=== PATIENT | female | born 1995 | race Caucasian/White ===

== ENCOUNTER 2018-08-06 12:51 | Emergency (ER) | payer OTHER ==
[2018-08-06] MEDS ORDERED: D5W-0.45 NACL + KCL 20 MEQ 1,000 ML IV (14:49)
[2018-08-06] MEDS: METOCLOPRAMIDE 10 MG TAB PO (15:21)
[2018-08-06 15:25] LABS: ADD MAN DIFF? NO
[2018-08-06 15:27] LABS: BASOPHILS % 0.2 % (0.0-2.0); HEMATOCRIT 41.8 % (37.0-47.0); HEMOGLOBIN 14.2 g/dl (12.0-16.0); LYMPHOCYTES # 1.5 10^3/ul (0.8-2.9); LYMPHOCYTES % 11.7 % (15.0-51.0); MEAN CORPUSCULAR VOLUME 88.4 fl (82.0-101.0); MEAN PLATELET VOLUME 10.2 fl (7.4-10.4); MONOCYTE # 0.9 10^3/ul (0.3-0.9); MONOCYTES % 7.1 % (0.0-11.0); NEUTROPHILS % 80.8 % (39.0-77.0); PLATELET COUNT 306 10^3/UL (140-415); RED BLOOD COUNT 4.73 10^6/ul (4.20-5.40); RED CELL DISTRIBUTION WIDTH 11.9 % (11.5-14.5)
[2018-08-06 15:27] LABS: WHITE BLOOD COUNT 12.4 10^3/ul (4.8-10.8)
[2018-08-06] MEDS: D5W-0.45 NACL + KCL 20 MEQ 1,000 ML IV (15:29)
[2018-08-06 15:44] LABS: ADD UMIC YES; UR ASCORBIC ACID NEGATIVE (NEGATIVE); UR BACTERIA MODERATE /HPF (NONE SEEN); UR BILIRUBIN (Dip) NEGATIVE (NEGATIVE); UR BLOOD (Dip) NEGATIVE (NEGATIVE); UR CLARITY CLOUDY (CLEAR); UR COLOR AMBER (YELLOW); UR GLUCOSE (Dip) 1+ mg/dL (NEGATIVE); UR KETONES (Dip) 2+ mg/dL (NEGATIVE); UR LEUKOCYTE ESTERASE (Dip) NEGATIVE Leu/ul (NEGATIVE); UR MUCUS MANY /HPF (NONE SEEN); UR NITRITE (Dip) NEGATIVE (NEGATIVE); UR RBC 8 /HPF (0-5); UR SPECIFIC GRAVITY (Dip) 1.033 (1.003-1.030); UR SQUAMOUS EPITHELIAL CELL MODERATE /HPF (FEW); UR TOTAL PROTEIN (Dip) 1+ mg/dl (NEGATIVE); UR UROBILINOGEN (Dip) 2+ mg/dL (NEGATIVE); UR WBC 12 /HPF (0-5)
[2018-08-06 15:48] LABS: ANION GAP 16 (5-13); BLOOD UREA NITROGEN 10 mg/dl (7-20); CALCIUM 9.7 mg/dl (8.4-10.2); CARBON DIOXIDE 24 mmol/L (21-31); CHLORIDE 100 mmol/L (97-110); CREATININE 0.54 mg/dl (0.44-1.00); Estimated GFR > 60 mL/min (>60); GLUCOSE 119 mg/dl (70-220); LIPASE 98 U/L (23-300); POTASSIUM 3.6 mmol/L (3.5-5.1); SODIUM 140 mmol/L (135-144)
[2018-08-06] MEDS: ONDANSETRON 4 MG INJ IV (17:18)
[2018-08-06] MEDS: CEFTRIAXONE 1 GM/50 ML (PMX) 50 ML IVPB (17:18)
[2018-08-06] MEDS: SOD CHLORIDE 0.9% 500 ML IV (17:34)
== END 2018-08-06 18:37 | disposition home or self-care (01) ==
LOC: FTE 12:51
DX: O21.9 Vomiting of pregnancy, unspecified (principal); O23.43 Unspecified infection of urinary tract in pregnancy, third trimester; Z3A.09 9 weeks gestation of pregnancy
CPT/HCPCS: 36415; 80048; 81001; 83690; 85025; 96365; 96366; 96368; 96375; 99284-25

== ENCOUNTER 2018-08-23 12:06 | Emergency (ER) | payer OTHER ==
[2018-08-23 14:01] LABS: ADD MAN DIFF? NO
[2018-08-23 14:03] LABS: WHITE BLOOD COUNT 9.7 10^3/ul (4.8-10.8)
[2018-08-23 14:03] LABS: BASOPHILS % 0.1 % (0.0-2.0); EOSINOPHILS % 0.1 % (0.0-7.0); HEMATOCRIT 41.1 % (37.0-47.0); HEMOGLOBIN 14.1 g/dl (12.0-16.0); LYMPHOCYTES # 1.3 10^3/ul (0.8-2.9); MEAN CORPUSCULAR HEMOGLOBIN 30.5 pg (29.0-33.0); MEAN CORPUSCULAR HGB CONC 34.3 g/dl (32.0-37.0); MEAN PLATELET VOLUME 9.5 fl (7.4-10.4); MONOCYTE # 0.6 10^3/ul (0.3-0.9); NEUTROPHIL # 7.8 10^3/ul (1.6-7.5); NEUTROPHILS % 80.4 % (39.0-77.0); PLATELET COUNT 286 10^3/UL (140-415); RED BLOOD COUNT 4.62 10^6/ul (4.20-5.40); RED CELL DISTRIBUTION WIDTH 12.3 % (11.5-14.5)
[2018-08-23] MEDS: SOD CHLORIDE 0.9% 1,000 ML IV (14:10)
[2018-08-23] MEDS: METOCLOPRAMIDE 10 MG INJ IV (14:10)
[2018-08-23 14:22] LABS: ALANINE AMINOTRANSFERASE 27 IU/L (13-69); ALBUMIN 4.1 g/dl (3.3-4.9); ALBUMIN/GLOBULIN RATIO 1.05; ALKALINE PHOSPHATASE 85 IU/L (42-121); ANION GAP 14 (5-13); ASPARTATE AMINO TRANSFERASE 24 IU/L (15-46); BILIRUBIN,INDIRECT 0.2 mg/dl (0-1.1); BILIRUBIN,TOTAL 0.2 mg/dl (0.2-1.3); BLOOD UREA NITROGEN 5 mg/dl (7-20); CALCIUM 9.6 mg/dl (8.4-10.2); CARBON DIOXIDE 26 mmol/L (21-31); CHLORIDE 102 mmol/L (97-110); CREATININE 0.48 mg/dl (0.44-1.00); Estimated GFR > 60 mL/min (>60); GLUCOSE 109 mg/dl (70-220); LIPASE 45 U/L (23-300); POTASSIUM 3.9 mmol/L (3.5-5.1); SODIUM 142 mmol/L (135-144)
[2018-08-23 15:16] LABS: ADD UMIC YES; UR ASCORBIC ACID 40 mg/dL (NEGATIVE); UR BACTERIA MANY /HPF (NONE SEEN); UR BILIRUBIN (Dip) NEGATIVE (NEGATIVE); UR BLOOD (Dip) NEGATIVE (NEGATIVE); UR CLARITY CLOUDY (CLEAR); UR COLOR AMBER (YELLOW); UR GLUCOSE (Dip) NEGATIVE (NEGATIVE); UR KETONES (Dip) 1+ mg/dL (NEGATIVE); UR LEUKOCYTE ESTERASE (Dip) 1+ Leu/ul (NEGATIVE); UR MUCUS MANY /HPF (NONE SEEN); UR NITRITE (Dip) NEGATIVE (NEGATIVE); UR RBC 3 /HPF (0-5); UR SPECIFIC GRAVITY (Dip) 1.028 (1.003-1.030); UR SQUAMOUS EPITHELIAL CELL MODERATE /HPF (FEW); UR TOTAL PROTEIN (Dip) 1+ mg/dl (NEGATIVE); UR UROBILINOGEN (Dip) 1+ mg/dL (NEGATIVE); UR WBC 14 /HPF (0-5)
== END 2018-08-23 16:20 | disposition home or self-care (01) ==
LOC: FTE 12:06
DX: O41.8X10 Other specified disorders of amniotic fluid and membranes, first trimester, not applicable or unspecified (principal); O46.8X1 Other antepartum hemorrhage, first trimester; O21.9 Vomiting of pregnancy, unspecified; R10.32 Left lower quadrant pain; Z3A.11 11 weeks gestation of pregnancy
CPT/HCPCS: 36415; 76801; 80053; 81001; 83690; 84702; 85025; 86900; 86901; 87086; 96361; 96374; 99285-25

== ENCOUNTER 2018-09-27 08:05 | Emergency (ER) | payer OTHER ==
[2018-09-27] MEDS: ONDANSETRON 4 MG INJ IV (08:37)
[2018-09-27] MEDS: SOD CHLORIDE 0.9% 1,000 ML IV ×2 (08:38→10:55)
[2018-09-27 08:58] LABS: ADD MAN DIFF? NO
[2018-09-27 09:03] LABS: BASOPHILS % 0.1 % (0.0-2.0); HEMATOCRIT 41.6 % (37.0-47.0); HEMOGLOBIN 14.6 g/dl (12.0-16.0); LYMPHOCYTES % 7.7 % (15.0-51.0); MEAN CORPUSCULAR HEMOGLOBIN 30.2 pg (29.0-33.0); MEAN CORPUSCULAR HGB CONC 35.1 g/dl (32.0-37.0); MEAN PLATELET VOLUME 10.8 fl (7.4-10.4); MONOCYTE # 0.3 10^3/ul (0.3-0.9); MONOCYTES % 2.2 % (0.0-11.0); NEUTROPHILS % 89.4 % (39.0-77.0); PLATELET COUNT 320 10^3/UL (140-415); RED BLOOD COUNT 4.84 10^6/ul (4.20-5.40)
[2018-09-27 09:03] LABS: WHITE BLOOD COUNT 13.4 10^3/ul (4.8-10.8)
[2018-09-27 09:24] LABS: ALANINE AMINOTRANSFERASE 12 IU/L (13-69); ALBUMIN 4.2 g/dl (3.3-4.9); ALBUMIN/GLOBULIN RATIO 1.02; ALKALINE PHOSPHATASE 80 IU/L (42-121); ANION GAP 20 (5-13); ASPARTATE AMINO TRANSFERASE 24 IU/L (15-46); BILIRUBIN,INDIRECT 0.2 mg/dl (0-1.1); BILIRUBIN,TOTAL 0.2 mg/dl (0.2-1.3); BLOOD UREA NITROGEN 6 mg/dl (7-20); CALCIUM 9.7 mg/dl (8.4-10.2); CARBON DIOXIDE 19 mmol/L (21-31); CHLORIDE 101 mmol/L (97-110); Estimated GFR > 60 mL/min (>60); GLUCOSE 124 mg/dl (70-220); POTASSIUM 3.4 mmol/L (3.5-5.1); SODIUM 140 mmol/L (135-144); TOTAL PROTEIN 8.3 g/dl (6.1-8.1)
[2018-09-27 11:56] LABS: ADD UMIC YES; UR ASCORBIC ACID 40 mg/dL (NEGATIVE); UR BACTERIA FEW /HPF (NONE SEEN); UR BILIRUBIN (Dip) NEGATIVE (NEGATIVE); UR BLOOD (Dip) NEGATIVE (NEGATIVE); UR CLARITY CLOUDY (CLEAR); UR COLOR AMBER (YELLOW); UR GLUCOSE (Dip) 1+ mg/dL (NEGATIVE); UR KETONES (Dip) 2+ mg/dL (NEGATIVE); UR LEUKOCYTE ESTERASE (Dip) TRACE Leu/ul (NEGATIVE); UR MUCUS MANY /HPF (NONE SEEN); UR NITRITE (Dip) NEGATIVE (NEGATIVE); UR RBC 7 /HPF (0-5); UR SPECIFIC GRAVITY (Dip) 1.027 (1.003-1.030); UR SQUAMOUS EPITHELIAL CELL MODERATE /HPF (FEW); UR TOTAL PROTEIN (Dip) 1+ mg/dl (NEGATIVE); UR UROBILINOGEN (Dip) NEGATIVE (NEGATIVE); UR WBC 16 /HPF (0-5)
[2018-09-27] MEDS: ONDANSETRON (ODT) 4 MG TAB ODT (12:34)
== END 2018-09-27 12:54 | disposition home or self-care (01) ==
LOC: FTE 08:05
DX: O21.9 Vomiting of pregnancy, unspecified (principal); Z3A.16 16 weeks gestation of pregnancy
CPT/HCPCS: 36415; 80053; 81001; 85025; 96361; 96374; 99284-25

== ENCOUNTER 2019-03-02 15:54 | Inpatient (IN) | payer OTHER ==
[2019-03-02] MEDS: LACTATED RINGER'S 500 ML IV ×2 (18:20→22:20)
[2019-03-02] MEDS ORDERED: MISOPROSTOL 200 MCG TAB PR ×2 (18:30→22:00)
[2019-03-02] MEDS ORDERED: OXYTOCIN 30 UNITS/LR 500 ML IV ×4 (18:30→22:00)
[2019-03-02] MEDS ORDERED: METHYLERGONOVINE 0.2 MG INJ IM ×2 (18:30→22:00)
[2019-03-02] MEDS ORDERED: CEFAZOLIN 2 GM/50 ML (PMX) 50 ML IVPB (18:30)
[2019-03-02] MEDS ORDERED: CARBOPROST 250 MCG INJ IM ×2 (18:30→22:00)
[2019-03-02 18:44] LABS: ADD MAN DIFF? NO
[2019-03-02 18:48] LABS: WHITE BLOOD COUNT 9.5 10^3/ul (4.8-10.8)
[2019-03-02 18:48] LABS: BASOPHILS % 0.2 % (0.0-2.0); EOSINOPHILS # 0.1 10^3/ul (0.0-0.5); EOSINOPHILS % 0.5 % (0.0-7.0); HEMATOCRIT 32.3 % (37.0-47.0); HEMOGLOBIN 10.3 g/dl (12.0-16.0); LYMPHOCYTES # 1.6 10^3/ul (0.8-2.9); LYMPHOCYTES % 16.9 % (15.0-51.0); MEAN CORPUSCULAR HEMOGLOBIN 25.6 pg (29.0-33.0); MEAN CORPUSCULAR HGB CONC 31.9 g/dl (32.0-37.0); MEAN CORPUSCULAR VOLUME 80.1 fl (82.0-101.0); MEAN PLATELET VOLUME 11.7 fl (7.4-10.4); MONOCYTE # 0.6 10^3/ul (0.3-0.9); MONOCYTES % 6.3 % (0.0-11.0); NEUTROPHIL # 7.2 10^3/ul (1.6-7.5); NEUTROPHILS % 75.7 % (39.0-77.0); PLATELET COUNT 225 10^3/UL (140-415); RED BLOOD COUNT 4.03 10^6/ul (4.20-5.40); RED CELL DISTRIBUTION WIDTH 14.7 % (11.5-14.5)
[2019-03-02] MEDS: LACTATED RINGER'S 1,000 ML IV ×2 (18:51→19:09)
[2019-03-02 19:07] LABS: INR 0.87; PROTIME 11.9 Sec (11.9-14.9); PT RATIO 0.9
[2019-03-02 19:46] LABS: HEPATITIS B SURFACE ANTIGEN NEGATIVE (NEGATIVE)
[2019-03-02] MEDS ORDERED: EPHEDrine 25 MG/5 ML SYG (20:00)
[2019-03-02] MEDS ORDERED: METOCLOPRAMIDE 10 MG INJ (20:10)
[2019-03-02] MEDS ORDERED: OXYTOCIN 10 UNIT INJ ×2 (20:10→21:16)
[2019-03-02] MEDS ORDERED: morphine SULFATE/PF (10 MG/10 ML) INJ (20:10)
[2019-03-02] MEDS ORDERED: ONDANSETRON 4 MG INJ (20:10)
[2019-03-02] MEDS ORDERED: MIDAZOLAM 1 MG/ML 2 ML INJ (21:10)
[2019-03-02] MEDS ORDERED: ONDANSETRON (ODT) 4 MG TAB ODT (22:00)
[2019-03-02] MEDS ORDERED: METHYLERGONOVINE 0.2 MG TAB PO (22:00)
[2019-03-02] MEDS ORDERED: NALOXONE (0.4 MG/ML) INJ IV (23:30)
[2019-03-02] MEDS ORDERED: ONDANSETRON 4 MG INJ IV (23:30)
[2019-03-02] MEDS ORDERED: EPHEDrine 25 MG/5 ML SYG IV (23:30)
[2019-03-02] MEDS ORDERED: morphine 2 MG INJ IV ×2 (23:30)
[2019-03-02] MEDS ORDERED: DIPHENHYDRAMINE 50 MG INJ IV (23:30)
[2019-03-02] MEDS: KETOROLAC 30 MG INJ IV (23:32)
[2019-03-03] MEDS: morphine SULFATE/PF (10 MG/10 ML) INJ SPINAL (00:08)
[2019-03-03] MEDS: OXYTOCIN 30 UNITS/LR 500 ML IV (00:12)
[2019-03-03] MEDS: LACTATED RINGER'S 500 ML IV ×5 (02:20→18:20)
[2019-03-03] MEDS: IBUPROFEN 600 MG TAB PO ×5 (06:00→23:47)
[2019-03-03 08:15] LABS: ADD MAN DIFF? NO
[2019-03-03 08:18] LABS: BASOPHILS % 0.1 % (0.0-2.0); EOSINOPHILS # 0.1 10^3/ul (0.0-0.5); EOSINOPHILS % 0.4 % (0.0-7.0); HEMATOCRIT 28.5 % (37.0-47.0); HEMOGLOBIN 9.3 g/dl (12.0-16.0); LYMPHOCYTES # 1.6 10^3/ul (0.8-2.9); LYMPHOCYTES % 11.9 % (15.0-51.0); MEAN CORPUSCULAR HEMOGLOBIN 25.7 pg (29.0-33.0); MEAN CORPUSCULAR HGB CONC 32.6 g/dl (32.0-37.0); MEAN CORPUSCULAR VOLUME 78.7 fl (82.0-101.0); MEAN PLATELET VOLUME 12.1 fl (7.4-10.4); MONOCYTE # 0.9 10^3/ul (0.3-0.9); MONOCYTES % 6.7 % (0.0-11.0); NEUTROPHILS % 80.5 % (39.0-77.0); PLATELET COUNT 194 10^3/UL (140-415); RED BLOOD COUNT 3.62 10^6/ul (4.20-5.40); RED CELL DISTRIBUTION WIDTH 14.6 % (11.5-14.5)
[2019-03-03 08:18] LABS: WHITE BLOOD COUNT 13.7 10^3/ul (4.8-10.8)
[2019-03-03] MEDS: LANOLIN HPA 1 PKT TOP (09:47)
[2019-03-03] MEDS: CEPHALEXIN 500 MG CAP PO ×3 (09:48→21:13)
[2019-03-03] MEDS: KETOROLAC 30 MG INJ IV ×2 (09:48→17:01)
[2019-03-03] MEDS: LACTATED RINGER'S 1,000 ML IV (10:14)
[2019-03-03 15:46] LABS: RAPID PLASMA REAGIN NONREACTIVE (NR)
[2019-03-04] MEDS: IBUPROFEN 600 MG TAB PO ×2 (05:30→12:15)
[2019-03-04] MEDS: FERROUS SULFATE (EC) 325 MG TAB PO (08:59)
[2019-03-04] MEDS: CEPHALEXIN 500 MG CAP PO ×2 (08:59→12:15)
[2019-03-04] MEDS: HYDROCODONE/APAP (5/325) TAB PO (09:03)
[2019-03-05] MEDS ORDERED: MEASLES,MUMPS,RUBELLA VACCINE INJ SC* (09:00)
[2019-03-05] MEDS ORDERED: DIPHTH/TET/ACEL PERTUSS (ADULT) 0.5 ML VIAL IM* (09:00)
== END 2019-03-04 16:30 | disposition home or self-care (01) | DRG 787 ==
LOC: OBT 15:54 → L-D 15:54 → OBT 17:47 → L-D 17:47 → PP1 23:59
PROVIDERS: Obstetrics & Gynecology
PROC: 10D00Z1 Extraction of Products of Conception, Low, Open Approach (ICD-10-PCS; principal; 2019-03-02)
DX: O65.5 Obstructed labor due to abnormality of maternal pelvic organs (principal); D62 Acute posthemorrhagic anemia; O34.211 Maternal care for low transverse scar from previous cesarean delivery; O99.02 Anemia complicating childbirth; Z3A.39 39 weeks gestation of pregnancy; Z37.0 Single live birth
CPT/HCPCS: 62322; 76818; 85025; 85610; 85730; 86592; 86850; 86900; 86901; 87340; 88305; 99464